=== PATIENT | female | born 1985 | race Caucasian/White ===

== ENCOUNTER 2016-09-17 19:00 | Inpatient (IN) | payer OTHER ==
[2016-09-17 20:33] VITALS: BMI 24.4
--- NOTE | 2016-09-17 20:38 | OBHP ---
Datetime: 09/17/2016 20:23 IP Adm Impression: Term, intrauterine IP Admit Plan: Initiate labor induction protocol Admit Comment, IP Provider: Pt is a 30yo edc 09/24/16 with IVF. She is a pt of Dr. Beth and transferred her care to her when she moved here from [place]. She presents for induction 2ndary to u s today which showed rell= 4.9 per pt. She denies srom, bleeding, ctxs, or decreased fm. Her ob hx is signif for preimplantation genetic screening to r/o [place] Chorea given FHX of p t's father with disease. obhx: x1 uneventful; spAB nkda medic: pnv shx: denies etoh, drugs or tobacco pshx: denies I: 39wks with OLIGO IVF P: Admit for cervidel induction. INduction procedure d/w pt Pelvic Type - PN: Adequate Extremities - PN: Normal Abdomen - PN: Normal Lungs - PN: Normal Heart - PN: Normal Neurologic - PN: Normal HEENT - PN: Normal General - PN: Normal Presentation-Admit: Vertex FHR - Baseline A Provider: 140 Membranes, Provider: Intact Contraction Comments Provider: no EGA AdmitDate IP: 39.0 Vital Signs Provider: Within Normal Limits IP Chief Complaint: Scheduled induction of labor; Other NICHD Variability Prov Fetus A: Moderate 6-25bpm NICHD Accel Fetus A IP Provider: 15X15 FHR Category Provider Fetus A: Category I Dilatation, Provider: 0 Effacement, Provider: 20 Station, Provider: -4 Genitourinary Exam: Normal
--- NOTE | 2016-09-17 20:48 | OBADHP ---
Datetime: 09/17/2016 20:23 Admit Comment, IP Provider: Pt is a 30yo edc 09/24/16 with IVF. She is a pt of Dr. Beth and transferred her care to her when she moved here from [place]. She presents for induction 2ndary to u s today which showed rell= 4.9 per pt. She denies srom, bleeding, ctxs, or decreased fm. Her ob hx is signif for preimplantation genetic screening to r/o [place] Ch[place] given FHX of p t's father with disease. obhx: x1 uneventful; spAB nkda medic: pnv shx: denies etoh, drugs or tobacco pshx: denies I: 39wks with OLIGO IVF P: Admit for cervidel induction. INduction procedure d/w pt Pelvic Type - PN: Adequate Extremities - PN: Normal Abdomen - PN: Normal Lungs - PN: Normal Heart - PN: Normal Neurologic - PN: Normal HEENT - PN: Normal General - PN: Normal Presentation-Admit: Vertex FHR - Baseline A Provider: 140 Membranes, Provider: Intact Contraction Comments Provider: no Vital Signs Provider: Within Normal Limits IP Chief Complaint: Scheduled induction of labor; Other NICHD Variability Prov Fetus A: Moderate 6-25bpm NICHD Accel Fetus A IP Provider: 15X15 FHR Category Provider Fetus A: Category I Dilatation, Provider: 0 Effacement, Provider: 20 Station, Provider: -4 Genitourinary Exam: Normal EGA AdmitDate IP: 39.0 IP Adm Impression: Term, intrauterine IP Admit Plan: Initiate labor induction protocol
[2016-09-17 21:24] LABS: BASO % 0.3 % (0.0-2.0); EOS # 0.1 K/uL (0.0-0.7); EOS % 0.6 % (0.0-4.0); HEMATOCRIT 33.9 % (34.0-47.0); LYMPH # 2.8 K/uL (1.0-4.3); LYMPH % 30.2 % (20.0-40.0); MEAN CELL VOLUME 86.3 fl (81.0-99.0); MEAN CORPUSCULAR HEMOGLOBIN 28.5 pg (27.0-31.0); MEAN CORPUSCULAR HGB CONC 33.1 g/dL (33.0-37.0); MEAN PLATELET VOLUME 10.5 fl (7.2-11.7); MONO # 0.7 K/uL (0.0-0.8); MONO % 7.1 % (0.0-10.0); NEUT # 5.7 K/uL (1.8-7.0); NEUT % 61.8 % (50.0-75.0); RED CELL DISTRIBUTION WIDTH 13.8 % (11.5-14.5); WHITE BLOOD COUNT 9.2 K/uL (4.8-10.8)
[2016-09-18 01:02] VITALS: BP 110/78; PULSE 91; RESP 16; TEMP 98.1
[2016-09-18] MEDS ORDERED: Nalbuphine 20 mg/ml Inj (1 ml) IVP PRN (02:05)
--- NOTE | 2016-09-18 11:04 | OBPN ---
Datetime: 09/18/2016 11:00 IP Progress Impression Other: Induction for oligohydramnios IP Procedures: Sterile Vag Exam IP Progress Plan: Cervical Ripening Membranes, Provider: Intact FHR - Baseline A Provider: 120 IP Progress Note Comment: 30 yo at 30+1 wks for induction of labor for oligohydramnios VE done 10:16 am Will start oral miso 50 mcg q 4 FHT reassuring, GBS negative NICHD Accel Fetus A IP Provider: 15X15 FHR Category Provider Fetus A: Category I NICHD Variability Prov Fetus A: Moderate 6-25bpm Dilatation, Provider: 1 Effacement, Provider: 0 Station, Provider: -1 NICHD Decel Fetus A IP Provider: None Datetime: 09/17/2016 20:23 Contraction Comments Provider: no Presentation-Admit: Vertex Vital Signs Provider: Within Normal Limits
--- NOTE | 2016-09-18 21:30 | OBPN ---
Datetime: 09/18/2016 21:25 IP Progress Impression: Normal progression of labor IP Procedures: Sterile Vag Exam IP Progress Plan: Continue present management Membranes, Provider: Intact FHR - Baseline A Provider: 120 IP Progress Note Comment: 30 yo at 39+1 wks for IOL for oligohydramnios, s/p cervidil, now r eceiving oral misoprostol FHT reaassuring, GBS negative NICHD Accel Fetus A IP Provider: 15X15 NICHD Variability Prov Fetus A: Moderate 6-25bpm Dilatation, Provider: 4 Effacement, Provider: 80 Station, Provider: -1
[2016-09-18] MEDS ORDERED: Fentanyl/Bupivacaine HCl 250 ML EPI ONE (22:49)
[2016-09-19] MEDS ORDERED: Oxytocin 30 units/LR 500ML 30 U/500 ML BAG IV ONE (02:34)
[2016-09-19] MEDS ORDERED: Oxycodone/Acetaminophen 5/325 mg Tab PO PRN ×2 (03:10)
[2016-09-19] MEDS ORDERED: Oxytocin 30 units/LR 500ML 30 U/500 ML BAG IV SCH (03:10)
[2016-09-19] MEDS ORDERED: DiphenhydrAMINE 50 mg/ml Inj IVP STA (03:13)
--- NOTE | 2016-09-19 03:25 | OBDS ---
DELIVERY PERSONNEL Delivery Doctor: Henry Palomino MD Rehabilitation Therapist: Umu RN/ Charito LYONS Anesthesiologist: Dr. Anam Harris Resident: Dr. Estraad Garcia MATERNAL INFORMATION Delivery Anesthesia: Epidural Medications in Delivery: Pitocin Provider Comments: Pt progressed to complete and pushed to deliver a viable female infant through cl ear fluid at 02:51 am. Nuchal cord x1 easily reduced. Apgars 9 and 9. Wt 3100gms, 6#13.3. Mouth a nd nares bulb-suctioned. placed on mother's abdomen. Cord clamped and cut. Cord blood colle cted. Placenta delivered spontaneously intact w/ 3vc at 02:55am. Bleeding controlled w/ bimanual ma ssage. Superficial second degree repaired w/ 2-0 rapide. Pt and baby tolerated the procedure well. EBL 300 mL LABOR SUMMARY EDC: 09/24/2016 00:00 No. Babies in Womb: 1 Attempted: No LABOR INFORMATION Cervical Ripening Agents: Cytotec @ 50mcg Group B Beta Strep: Negative
[2016-09-19 06:33] LABS: HEMATOCRIT 32.5 % (34.0-47.0); MEAN CELL VOLUME 87.2 fl (81.0-99.0); MEAN CORPUSCULAR HEMOGLOBIN 28.1 pg (27.0-31.0); MEAN CORPUSCULAR HGB CONC 32.2 g/dL (33.0-37.0); RED CELL DISTRIBUTION WIDTH 13.3 % (11.5-14.5); WHITE BLOOD COUNT 13.5 K/uL (4.8-10.8)
--- NOTE | 2016-09-20 13:24 | OBPPN ---
Datetime: 09/20/2016 13:20 PP Pain Prov: Within normal limits PP Nausea Prov: Denies PP Flatus Prov: Yes PP Breasts Prov: Normal PP Heart Prov: Normal PP Lungs Prov: Normal PP Abdomen/Uterus Prov: Normal PP Lochia Prov: Normal PP Vulva/Perineum Prov: Normal PP CVA Tenderness Prov: Normal PP Extremities Prov: Normal PP Comments Phys Exam Prov: FUndus firm under umbilicus PP Impression Prov: Normal progression PP Plan Prov: Continue present management PP Progress Note Prov: Patient denies CP, no SOB, no N/V, tolerating PO diet, ambulating well, mild lochia, abdominal pain tolerable, mild lochia, A/P PPD #1 1. Reg diet 2. Motrin and Percocet prn pain 3. Encourage ambulation and IP PP Procedures: None Vital Signs Provider PP: Reviewed; Within Normal Limits
[2016-09-20] MEDS ORDERED: Lansinoh for Breast Feeding Mothers TP PRN (16:02)
--- NOTE | 2016-09-21 09:40 | OBDCSUM ---
Datetime: 09/21/2016 09:10 Discharged to, Provider: Home Follow up at, Provider: [facility] Disch Instr Activity: Normal activity Disch Instr Diet: Regular Discharge Instructions, Provider: Routine instructions given Discharge Diagnosis, Provider: Term Delivered Discharge Time: 09/21/2016 09:39 Follow up in weeks, Provider: 6 weeks Disch Referrals: None Contraception discussed, Prov: Yes Disch Activity Restrictions: No sexual activity; Nothing in vagina - [place], tampons, douche Discharge Comment, Provider: Return to hospital if increased bleeding, pain, temp Contraception after Delivery: Undecided
--- NOTE | 2016-09-21 09:41 | OBPPN ---
Datetime: 09/21/2016 09:38 PP Pain Prov: Within normal limits PP Nausea Prov: Denies PP Flatus Prov: Yes PP Breasts Prov: Normal PP Heart Prov: Normal PP Lungs Prov: Normal PP Abdomen/Uterus Prov: Normal PP Lochia Prov: Normal PP Vulva/Perineum Prov: Normal PP CVA Tenderness Prov: Normal PP Extremities Prov: Normal PP Comments Phys Exam Prov: Fundus firm under umbilicus PP Impression Prov: Normal progression PP Plan Prov: Continue present management PP Progress Note Prov: Patient denies CP, no SOB, no N/V,tolerating PO diet, ambulating/voiding well , mild lochia, abdominal pain tolerable with meds A/P 1. Discharge patient 2. Discharge instrucitons reviewed IP PP Procedures: None Vital Signs Provider PP: Reviewed; Within Normal Limits
== END 2016-09-21 10:20 | disposition home or self-care (01) | DRG 775 ==
LOC: H.EROB2 19:00 → H.L&D 20:33 → H.OB/GYN 09-19 05:40
PROVIDERS: ADMIT Obstetrics & Gynecology; ATTEND Obstetrics & Gynecology
PROC: 4A1HXCZ Monitoring of Products of Conception, Cardiac Rate, External Approach (ICD-10-PCS; 2016-09-17)
PROC: 0KQM0ZZ Repair Perineum Muscle, Open Approach (ICD-10-PCS; principal; 2016-09-19)
PROC: 10E0XZZ Delivery of Products of Conception, External Approach (ICD-10-PCS; 2016-09-19)
DX: O41.03X0 Oligohydramnios, third trimester, not applicable or unspecified (principal); O69.81X0 Labor and delivery complicated by cord around neck, without compression, not applicable or unspecified; Z3A.39 39 weeks gestation of pregnancy; Z37.0 Single live birth; O71.89 Other specified obstetric trauma

== ENCOUNTER 2018-03-11 01:58 | Inpatient (IN) | payer OTHER ==
[2018-03-11 02:27] VITALS: BMI 27.4
[2018-03-11] MEDS ORDERED: Oxytocin 30 UNIT 30 UNITS/500 ML BAG IV ONE ×2 (02:27→03:23)
[2018-03-11] MEDS ORDERED: Lactated Ringer's 1,000 ML IV ONE (02:27)
[2018-03-11] MEDS ORDERED: Lactated Ringer's 1,000 ML IV SCH (02:30)
--- NOTE | 2018-03-11 03:21 | OBADHP ---
Datetime: 03/11/2018 03:15 Admit Comment, IP Provider: The ptient is a EGA 39 weeks presents c/o uterine contractions of m oderate intensity. Pt denies LOF reports good FM she deneis any PN issues PMH none PSh none NKDA social neg ROS + uterine contractions and abdominal pain 10 other systems neg VSS afebrile P/E se notes IUP 39 + weeks active labor vertex EFW 7lbs Anticipate EFM Routine labs Pelvic Type - PN: Adequate Extremities - PN: Normal Abdomen - PN: Normal Back - PN: Normal Breast - PN: Normal Lungs - PN: Normal Heart - PN: Normal Thyroid - PN: Normal Neurologic - PN: Normal HEENT - PN: Normal General - PN: Normal Weight - Estimated: 7 Presentation-Admit: Vertex FHR - Baseline A Provider: 154 Gestation - Est Wks by US: 39.0 Pool Provider: Negative Vital Signs Provider: Reviewed IP Chief Complaint: Uterine contractions NICHD Variability Prov Fetus A: Moderate 6-25bpm NICHD Accel Fetus A IP Provider: 15X15 FHR Category Provider Fetus A: Category I NICHD Decel Fetus A IP Provider: None Dilatation, Provider: 5 Effacement, Provider: 100 Station, Provider: 0 Genitourinary Exam: Normal DTRs - PN: Normal IP Adm Impression: Term, intrauterine ; Active labor IP Admit Plan: Admit to unit; Initiate labor protocol
[2018-03-11] MEDS ORDERED: Benzocaine/Menthol SPRAY TOP PRN ×2 (03:23→04:32)
[2018-03-11 04:36] LABS: BASO % 0.3 % (0.0-2.0); EOS % 0.4 % (0.0-4.0); LYMPH # 2.3 K/uL (1.0-4.3); LYMPH % 23.3 % (20.0-40.0); MEAN CELL VOLUME 86.6 fl (81.0-99.0); MEAN CORPUSCULAR HEMOGLOBIN 28.9 pg (27.0-31.0); MEAN CORPUSCULAR HGB CONC 33.3 g/dL (33.0-37.0); MEAN PLATELET VOLUME 11.3 fl (7.2-11.7); MONO # 0.7 K/uL (0.0-0.8); MONO % 7.2 % (0.0-10.0); NEUT # 6.7 K/uL (1.8-7.0); NEUT % 68.8 % (50.0-75.0); RBC 4.15 Mil/uL (3.80-5.20); RED CELL DISTRIBUTION WIDTH 13.6 % (11.5-14.5); WHITE BLOOD COUNT 9.7 K/uL (4.8-10.8)
[2018-03-11 04:47] VITALS: O2SAT 100
[2018-03-11] MEDS ORDERED: Lansinoh for Breast Feeding Mothers TP ONE (12:15)
--- NOTE | 2018-03-12 15:51 | OBPPN ---
Datetime: 03/12/2018 15:46 PP Pain Prov: Within normal limits PP Nausea Prov: Denies PP Flatus Prov: Yes PP BM Prov: Yes PP Breasts Prov: Normal PP Heart Prov: Normal PP Lungs Prov: Normal PP Abdomen/Uterus Prov: Normal PP Lochia Prov: Normal PP Vulva/Perineum Prov: Normal PP CVA Tenderness Prov: Normal PP Extremities Prov: Normal PP Impression Prov: Normal progression PP Plan Prov: Continue present management PP Progress Note Prov: She feels fine; eating well; ambualting without difficulty A: S?P day 1 PLAN: cont care - anticipate discharge in AM Vital Signs Provider PP: Reviewed; Within Normal Limits
[2018-03-12] MEDS ORDERED: Lansinoh for Breast Feeding Mothers TP ONE (17:44)
--- NOTE | 2018-03-13 09:23 | OBPPN ---
Datetime: 03/13/2018 09:22 PP Pain Prov: Within normal limits PP Nausea Prov: Denies PP Flatus Prov: Yes PP BM Prov: Yes PP Breasts Prov: Normal PP Heart Prov: Normal PP Lungs Prov: Normal PP Abdomen/Uterus Prov: Normal PP Lochia Prov: Normal PP Vulva/Perineum Prov: Normal PP CVA Tenderness Prov: Normal PP Extremities Prov: Normal PP Progress Prov: Normal PP Impression Prov: Normal progression PP Plan Prov: Discharge PP Progress Note Prov: PPD2 discharge home and follow up in 6w Vital Signs Provider PP: Reviewed; Within Normal Limits
--- NOTE | 2018-03-13 09:25 | OBDCSUM ---
Datetime: 03/13/2018 09:22 Discharged to, Provider: Home Follow up at, Provider: [facility] Disch Instr Activity: Normal activity Disch Instr Diet: Regular Discharge Instructions, Provider: Routine instructions given Discharge Diagnosis, Provider: Term Delivered Follow up in weeks, Provider: 6w Disch Referrals: None Contraception discussed, Prov: Yes Disch Activity Restrictions: No sexual activity; Nothing in vagina - [place], tampons, douche
[2018-03-13 16:36] VITALS: BP 106/52; PULSE 83; RESP 18; TEMP 98.2
== END 2018-03-13 12:00 | disposition home or self-care (01) | DRG 807 ==
LOC: H.EROB2 01:58 → H.L&D 02:27 → H.OB/GYN 04:20
PROVIDERS: ADMIT Obstetrics & Gynecology Gynecology; ATTEND Obstetrics & Gynecology Gynecology
PROC: 10E0XZZ Delivery of Products of Conception, External Approach (ICD-10-PCS; principal; 2018-03-11)
PROC: 4A1HXCZ Monitoring of Products of Conception, Cardiac Rate, External Approach (ICD-10-PCS; 2018-03-11)
DX: O70.9 Perineal laceration during delivery, unspecified (principal); Z37.0 Single live birth; Z3A.38 38 weeks gestation of pregnancy